=== PATIENT | male | born 1980 | race Caucasian/White ===

== ENCOUNTER 2022-08-16 17:00 | Outpatient (RCR) | payer OTHER, SELFPAY ==
--- NOTE | 2022-07-21 17:25 | PTOPEVAL1 ---
Assessment and note entered by Michel Cade, PT Evaluation Information Assessment Status Evaluation Diagnosis neck and back pain Subjective Information Patient reports when he wakes up in the morning his back will bother him along with his L hip will sometime go out on him. He has had other bouts of sciatica going down either leg. The patient also has just recently started noticing neck pain with go along with headaches and B shoulder pain with the R UE being worse to where he can barely lift his rm up without pain. Patient is a mechanic sound technician, reports trouble sleeping on the R side secondary to the shoulder pain. Reported Pain Level Pain Score 6,5,4: Self Report Additional Pain Score Comments the shoulder has really increased pain in the last couple days, cannot remember a specific incident Assessment PT Clinical Summary Manny is a 42 year old male coming into the clinic with neck and back pain. The neck pain also appears that it may be radiating to the R shoulder or may be a separate issue. Patient has positive Spurling test going to the R front and back, tight upper traps on the neck. For the R shoulder he has positive lift off, resisted abduction along with decreased range of motion on that side. For the back the patient has tightness in the hamstrings, quads, low back, and weak lower ab muscles. Physical therapy should be able to help the patient by being able to work on stretching out the lower body and upper traps, while also strengthening the upper back muscles and core muscles and improve muscular alignment to prevent imbalance. Modalities and manual therapy will also help with muscle tightness and pain control. Plan of Care Interventions Electrical Stimulation,Hot Pack/Cold Pack,Manual Therapy,Mechanical Traction,Neuro Re-education, Patient/Caregiver Education,Therapeutic Activities, Therapeutic Exercise,Ultrasound PT Services Indicated Yes Treatment Frequency and 1-2x/wk for 4 weeks Duration These treatments will address the objective and functional deficits as defined above. The patient will be advanced safely and appropriately in order for the patient to progress towards his/her prior level of function. Additional exercises will be introduced and as well as a comprehensive home exercise program upon discharge, if needed, ?to ensure carryover of functional gains achieved in the clinic. This treatment plan has been reviewed and agreement upon by the patient.
--- NOTE | 2022-08-05 16:08 | PCPTNOTE ---
Patient did not show up for scheduled appointment this date. Called and had to leave a message.
--- NOTE | 2022-08-09 16:28 | PCPTNOTE ---
Patient's called & cancelled scheduled appointment this date due to needing later appointment time due to work.
--- NOTE | 2022-08-12 17:08 | PCPTNOTE ---
Patient did not show up for scheduled appointment this date.Called and spoke to patient he stated his called and reschedule that appointment
--- NOTE | 2022-08-19 08:24 | PCPTNOTE ---
Patient did not show up for scheduled appointment this date. Called patient, but patient did not pickle pumper and recieved automated message that patient is unavailable at this time.
--- NOTE | 2022-10-11 14:43 | PCPTNOTE ---
Admitting Provider: Attending Provider: Vicky Gibbons, MARILU Patient:Pastor Godoy Date of :1980 Patient has not returned for any further treatments since 08/16/2022, therefore (he/she) will be discharged at this time. Patient?s initial visit was on 07/21/2022 15:00 and (he/she) had a total of ___3 visits with 4 cancellations or no shows The goals have been not met. Thank you for referring this patient to [facility]. Please review, sign, date and return this discharge summary STEPHEN. I have been updated about the patient's current status and I agree with discharge from the above service at this time. Referring Physician Date
== END 2022-10-11 14:56 | disposition home or self-care (01) ==
LOC: ANHPT 17:00
PROVIDERS: PCP Student in an Organized Health Care Education/Training Program; Visit Provider Physician Assistant
DX: M54.2 Cervicalgia (principal); M54.50 Low back pain, unspecified
CPT/HCPCS: 97014; 97110; 97140; 97161; 97530; 99199; G0283

== ENCOUNTER 2023-01-07 12:37 | Emergency (ER) | payer OTHER, SELFPAY ==
[2023-01-07 12:50] VITALS: BP 122/83; PULSE 99; RESP 16; TEMP 36.2; O2SAT 99
--- NOTE | 2023-01-07 13:33 | ED.URI ---
HPI - URI/Sore Throat General Chief Complaint: Upper Respiratory Infection Stated Complaint: Congestion,Runny Nose,Bilateral Ear Irritation Time Seen by Provider: 01/07/23 13:22 Source: patient and RN notes reviewed Mode of arrival: ambulatory Limitations: no limitations History of Present Illness HPI Narrative: Patient presents today with a 3 day history of nasal congestion, rhinorrhea, cough, body aches, fever up to 99. Denies shortness of breath. He has been taking Mucinex and ibuprofen with mild relief. No history of asthma or COPD. He is a nonsmoker. Related Data Home Medications Medication Instructions Recorded Confirmed alprazolam 0.5 mg tablet 0.5 mg PO PRN PRN Anxiety 01/07/23 01/07/23 duloxetine 60 mg capsule,delayed 60 mg PO DAILY 01/07/23 01/07/23 release famotidine 40 mg tablet 40 mg PO DAILY 01/07/23 01/07/23 metoprolol succinate 25 mg 25 mg PO DAILY 01/07/23 01/07/23 tablet,extended release 24 hr omeprazole 40 mg capsule,delayed 40 mg PO DAILY 01/07/23 01/07/23 release rosuvastatin 10 mg tablet 10 mg PO DAILY 01/07/23 01/07/23 Allergies Allergy/AdvReac Type Severity Reaction Status Date / Time amoxicillin AdvReac Mild Rash Verified 01/07/23 12:52 Penicillins AdvReac Mild rash Verified 01/07/23 12:52 Review of Systems Review of Systems: CONSTITUTIONAL: Denies chills, or sweats.+ body aches, fever EYES: Denies visual changes, redness, or discharge. ENT: Denies sore throat, or otalgia.+ congestion, rhinorrhea CARDIOVASCULAR: Denies chest pain, palpitations, or edema. RESPIRATORY: Denies dyspnea.+ cough GASTROINTESTINAL: Denies abdominal pain, nausea, vomiting, or diarrhea. GENITOURINARY: Denies dysuria or hematuria. SKIN: Denies rash, itching, or wounds. MUSCULOSKELETAL: Denies back pain, joint pain, or myalgia. NEUROLOGIC: Denies headache, numbness, tingling, or weakness. PSYCH: Denies depression or anxiety. PMFSH Comments At time of signature, I have reviewed and agree with nursing past medical, surgical, social and family history unless otherwise noted. Please see nursing chart for further information. There is no relevant family history pertinent to the presenting complaint Exam Narrative: GENERAL: Mildly ill-appearing, well-nourished, and in no acute distress. HEAD: Normocephalic, atraumatic. EYES: EOMI. No redness or drainage. Conjunctivae normal. ENT: Mucous membranes pink and moist. Nares congested with rhinorrhea. TMs normal bilaterally. Throat normal. Uvula midline. Bilateral nasal turbinates are slightly edematous with rhinorrhea. NECK: Normal AROM. Supple. No lymphadenopathy. CHEST: No respiratory distress. Clear to auscultation. HEART: Regular rate and rhythm. No murmur appreciated. Normal peripheral pulses. EXTREMITIES: Normal range of motion. No edema. SKIN: Warm, dry, no rash. Capillary refill normal. Normal skin turgor. NEURO: No focal deficits. Alert and oriented x3. Gait steady. PSYCH: Normal affect. No signs of depression or anxiety. Course Course Level of Care: Express Care Visit Vital Signs Vital signs: Vital Signs Temperature 97.1 F L 01/07/23 12:50 Pulse Rate 99 01/07/23 12:50 Respiratory Rate 16 01/07/23 12:50 Blood Pressure 122/83 01/07/23 12:50 Pulse Oximetry 99 01/07/23 12:50 Oxygen Delivery Room Air 01/07/23 12:50 Temperature 97.1 F L 01/07/23 12:50 Pulse Rate 99 01/07/23 12:50 Respiratory Rate 16 01/07/23 12:50 Blood Pressure 122/83 01/07/23 12:50 Pulse Oximetry 99 01/07/23 12:50 Oxygen Delivery Room Air 01/07/23 12:50 Reviewed. Pt has been instructed to follow up with his PCP regarding his elevated blood pressure today. MDM - URI/Sore Throat MDM Narrative Medical decision making narrative: Symptoms are likely due to a viral illness versus seasonal allergies. Instructed patient to start an antihistamine/decongestant combination and an intranasal steroid. No prescription medicat
== END 2023-01-07 13:38 | disposition home or self-care (01) ==
PROVIDERS: Emergency Provider Nurse Practitioner; PCP Physician Assistant
DX: J06.9 Acute upper respiratory infection, unspecified (principal)
CPT/HCPCS: 99211; G0463

== ENCOUNTER 2023-11-01 13:27 | Emergency (ER) | payer OTHER, SELFPAY ==
[2023-11-01 13:58] VITALS: BP 116/83; PULSE 86; RESP 18; TEMP 36.8; O2SAT 97
--- NOTE | 2023-11-01 14:11 | ED.GENADULT ---
HPI - General Adult General Chief complaint: Upper Respiratory Infection Stated complaint: nasal drainage Source: patient, RN notes reviewed and old records reviewed Mode of arrival: ambulatory Limitations: no limitations History of Present Illness HPI narrative: 43-year-old male patient presents to [facility] with complaints increased nasal congestion and feeling like throat is swollen. Patient states has allergy issues and always has sinus congestion, postnasal drip but the last couple days feels like it is worse and states coughed up some bloody sputum. Patient also states throat is irritated feels swollen. Patient is on doxycycline 100 mg b.i.d. for 14 days that he was given for a stye. Related Data Home Medications Medication Instructions Recorded Confirmed alprazolam 0.5 mg tablet 0.5 mg PO PRN PRN Anxiety 01/07/23 11/01/23 duloxetine 60 mg capsule,delayed 60 mg PO DAILY 01/07/23 11/01/23 release famotidine 40 mg tablet 40 mg PO DAILY 01/07/23 11/01/23 metoprolol succinate 25 mg 25 mg PO DAILY 01/07/23 11/01/23 tablet,extended release 24 hr omeprazole 40 mg capsule,delayed 40 mg PO DAILY 01/07/23 11/01/23 release rosuvastatin 10 mg tablet 20 mg PO DAILY 01/07/23 11/01/23 benzoyl peroxide 10 % topical 1 applic topical QID 11/01/23 11/01/23 cleanser doxycycline hyclate 100 mg tablet 100 mg PO BID 11/01/23 11/01/23 tadalafil 5 mg tablet 5 mg PO PRN PRN Erectile 11/01/23 11/01/23 Dysfunction Allergies Allergy/AdvReac Type Severity Reaction Status Date / Time amoxicillin AdvReac Mild Rash Verified 11/01/23 13:40 Penicillins AdvReac Mild rash Verified 11/01/23 13:40 Review of Systems Constitutional: Constitutional: Reports no additional constitutional complaints, Denies body ache(s), Denies chills, Denies fatigue, Denies fever(s) and Denies headache(s) Eyes: Eyes: Reports no additional eye complaints and Denies blurry vision ENT: Reports system reviewed and no additional complaints, except as documented, Denies vertigo, Denies dizziness, Denies ear discharge, Denies otalgia, Denies facial pain, Denies headache(s), Reports nasal congestion, Reports nasal discharge, Denies sinus pain, Reports sinus pressure, Denies sore throat and Reports throat swelling Cardiovascular: Cardiovascular: Reports no additional cardiovascular complaints, Denies chest pain, Denies chest pain at rest, Denies rapid heart rate and Denies dyspnea Respiratory: Respiratory: Reports no additional respiratory complaints, Denies chest congestion, Denies cough, Denies pain on inspiration, Denies pain with cough and Denies dyspnea Gastrointestinal: Gastrointestinal: Denies abdominal pain, Denies diarrhea, Denies nausea and Denies vomiting Integumentary/Breasts: Skin/Breast: Denies rash Neurologic: Reports system reviewed and no additional complaints, except as documented, Denies vertigo, Denies dizziness and Denies headache(s) Endocrine: Endocrine: Denies fatigue PMFSH Comments At the time of my signature, I reviewed and agree with the nursing past medical, surgical, social, and family history. There is no relevant family history pertinent to the patient complaint. Exam Const: General: cooperative, healthy appearing, no acute distress and well nourished Nutritional Appearance: well nourished Orientation/consciousness: patient oriented x3 Limitations: no limitations HENMT: Head: normal to inspection and normocephalic Ears: external ears normal Face/Nose/Sinus: Normal nasal mucous membranes and turbinates present, no nasal polyps, normal facial exam and sinuses nontender Face and sinus: normal facial exam Mouth: Yes Normal oral and palatal mucosa present, Yes oropharynx normal and Yes moist mucous membranes Throat: posterior oropharynx normal, tonsils normal, uvula midline, normal tonsils, no peritonsillar masses, postnasal drainage and no uvular edema Eyes: General: appearance normal, both eyes and all related structures Sclera: sc
== END 2023-11-01 14:20 | disposition home or self-care (01) ==
PROVIDERS: Emergency Provider Registered Nurse; PCP Physician Assistant
DX: J01.90 Acute sinusitis, unspecified (principal); E78.00 Pure hypercholesterolemia, unspecified; I10 Essential (primary) hypertension; K21.9 Gastro-esophageal reflux disease without esophagitis; F41.9 Anxiety disorder, unspecified
CPT/HCPCS: 99213; G0463